=== PATIENT | male | born 1965 | race Caucasian/White ===

== ENCOUNTER 2024-12-19 11:14 | Inpatient (IN) | payer OTHER, SELFPAY ==
[2024-12-18 22:03] VITALS: BP 149/94
[2024-12-18 23:11] VITALS: BP 144/81
[2024-12-18 23:48] LABS: Hematocrit 36.1 % (39.0-52.0); Hemoglobin 11.9 g/dL (13.0-18.0); Mean Corpuscular Hgb 26.8 pg (27.0-31.0); Mean Corpuscular Volume 81.3 fL (80.0-94.0); Mean Platelet Volume 12.2 fL (7.4-10.4); Platelet Count 116 10^3/uL (130-400); Red Blood Cell Count 4.44 10^6/uL (4.70-6.10); Red Cell Dist. Width 14.8 % (11.5-14.5)
[2024-12-18 23:54] LABS: ALT (SGPT) 39 U/L (0-50); AST (SGOT) 33 U/L (17-59); Albumin 4.2 g/dl (3.5-5.0); Alkaline Phosphatase 119 U/L (38-126); Blood Urea Nitrogen 9 mg/dl (9-20); Calcium 8.7 mg/dl (8.4-10.2); Carbon Dioxide 27 mmol/L (22-30); Chloride 102 mmol/L (98-107); Glucose 144 mg/dl (70-99); Potassium 3.5 mmol/L (3.5-5.1); Sodium 136 mmol/L (135-145); Total Bilirubin 0.6 mg/dl (0.2-1.3); Total Protein 6.8 g/dl (6.3-8.2); eGFR > 60.00
[2024-12-19] VITALS (7 sets, daily range): BP systolic 137–153; BP diastolic 83–90
[2024-12-19 00:08] LABS: % Basophils 0.3 % (0-2); % Eosinophils 0.9 % (0-6); % Immature Granulocytes 0.4 % (0-0.5); % Monocytes 8.2 % (1.7-9.3); % Neutrophils 16.2 % (42.2-75.2); Absolute Basophils 0.2 10^3/uL (0-0.2); Absolute Eosinophils 0.6 10^3/uL (0-0.7); Absolute Immature Granulocytes 0.3 10^3/uL (0-0.05); Absolute Lymphocytes 47.4 10^3/uL (1.2-3.4); Absolute Monocytes 5.2 10^3/uL (0.1-0.6); Absolute Neutrophils 10.4 10^3/uL (1.4-6.5); Nucleated Red Blood Cells % 0 % (-)
[2024-12-19 00:57] LABS: Lactic Acid 0.8 mmol/L (0.7-2.0)
[2024-12-19] MEDS: TORADOL 15 MG IV ×4 (01:26→20:29)
[2024-12-19 01:34] LABS: Urine Albumin 3+ (Neg - Trace); Urine Bilirubin Negative (Negative); Urine Character Clear (Clear); Urine Color Yellow; Urine Glucose Negative (Negative); Urine Ketone Negative (Negative); Urine Leukocyte Negative (Negative); Urine Nitrite Negative (Negative); Urine Occult Blood 2+ (Negative); Urine Urobilinogen Negative (Neg - 1+); Urine pH 6.5 (5.0-9.0)
[2024-12-19 01:52] LABS: COVID-19 Antigen Negative (Negative)
--- NOTE | 2024-12-19 01:57 | ED.GENMED ---
History of Present Illness
General
Chief Complaint: Fever
Source: patient and spouse
Exam Limitations: none
Time Seen by Provider: 12/18/24 23:16
Nursing documentation reviewed up to this point in time: agreed with
History of Present Illness
History of Present Illness:
59-year-old male past medical history of CLL not currently receiving any treatment presenting to the emergency department today with concerns of vague diffuse symptoms body aches fevers chills some upper respiratory symptoms cough. Worsening cough
and fever as well as shortness of breath over the past 24 hours. Denies any specific chest pain no nausea vomiting.
Review of Systems
Review of Systems
Allergies reviewed?: Yes
All Other Systems: ROS reviewed and negative except as documented in HPI and ROS
Phy Exam
Physical Exam
Physical Exam:
GENERAL: Alert , in no apparent distress
EYE: pupils equal and reactive
NECK: Supple, no significant adenopathy.
ENT: o/p clr, mmm.
CARDIAC: Regular rate and rhythm .
LUNGS: Diffuse rhonchi mainly to the lower lobes,
ABDOMEN: Soft, without focal tenderness, no r/g, no cvat
NEUROLOGICAL: Alert and oriented, no focal neuro deficits
SKIN: Warm and dry, skin intact.
MUSCULOSKELETAL: No edema, well perfused.
PSYCH: Normal and appropriate interaction.
Course
Orders/Labs/Results
Orders:
Orders
12/18/24 23:31
IV Insert/Care/Rem.- Treatment PRN
Pulse Ox/cont/shift [RESP] Urgent
Quantity: 1
Special Instructions: CONTINUOUS
12/18/24 23:34
Complete Blood Count/With Diff Urgent
Comprehensive Metabolic Panel Urgent
12/19/24 00:18
Chest [CR Chest - 2 Views ] Urgent
Comment:
Reason For Exam: cough adventitious lung sounds diffuse
12/19/24 00:20
Ketorolac [Toradol] 15 mg IV NOW STA
12/19/24 00:28
Lactic Acid Urgent
Blood Culture Q30M
ADA Source: Blood/Venous
Specimen Description:
12/19/24 00:30
Blood Culture Q30M
ADA Source: Blood/Venous
Specimen Description:
12/19/24 01:12
COVID-19 Antigen Urgent
Source: Nasal Swab
Urinalysis Urgent
Date Specimen was Collected: 12/19/24
Time Specimen was Collected: 01:08
Urine Microscopic Urgent
Date Specimen was Collected: 12/19/24
Time Specimen was Collected: 01:08
Influenza A+B Rapid Molecular Urgent
ADA Source: Nasal Swab
Specimen Description:
Urine Culture Urgent
ADA Source: Urine
Specimen Description:
Obtained by: [facility]
Date Specimen was Collected: 12/19/24
Time Specimen was Collected: 01:08
12/19/24 01:49
Azithromycin 500 mg/250 ml [Zithromax Infusion] 500 mg in 250 ml IV NOW
CefTRIAXone [Rocephin] 2,000 mg IV NOW STA
Abnormal Lab Results
12/18/24 12/19/24
23:34 01:12
WBC 64.0 H* 10^3/uL
(4.8-10.8)
RBC 4.44 L 10^6/uL
(4.70-6.10)
Hgb 11.9 L g/dL
(13.0-18.0)
Hct 36.1 L %
(39.0-52.0)
MCH 26.8 L pg
(27.0-31.0)
RDW 14.8 H %
(11.5-14.5)
Plt Count 116 L 10^3/uL
(130-400)
MPV 12.2 H fL
(7.4-10.4)
Abs Immat Gran (auto) 0.3 H 10^3/uL
(0-0.05)
Absolute Neuts (auto) 10.4 H 10^3/uL
(1.4-6.5)
Absolute Lymphs (auto) 47.4 H 10^3/uL
(1.2-3.4)
Absolute Monos (auto) 5.2 H 10^3/uL
(0.1-0.6)
Neutrophils % 16.2 L %
(42.2-75.2)
Lymphocytes % 74.0 H %
(20.5-51.1)
Glucose 144 H mg/dl
(70-99)
Urine Occult Blood 2+ A
(Negative)
Urine Albumin 3+ A
(Neg - Trace)
12/18/24 23:34
12/18/24 23:34
Vital Signs
Initial and Last Documented VS:
Initial Vital Signs
Temp Pulse Resp BP Pulse Ox
99.9 F 110 16 149/94 95
12/18/24 22:03 12/18/24 22:03 12/18/24 22:03 12/18/24 22:03 12/18/24 22:03
Last Documented Vital Signs
Temp Pulse Resp BP Pulse Ox
99.9 F 110 16 144/81 92
12/18/24 22:03 12/18/24 22:03 12/18/24 22:03 12/18/24 23:11 12/18/24 23:45
MDM/Problems Addressed
MDM/Problems Addressed:
59-year-old male presenting to the emergency department today with concerns of fever respiratory symptoms worsening over the past day present to some degree over the past 4 days. On arrival tachycardic low-grade temperature did take Tylenol prior
to arrival. White blood cell count of 64,000. Does typically have a white count in the 60,000 due to CLL. Otherwise labs unremarkable. Chest x-ray no pneumonia but lung examination with concerning tissue sounds. Considering this plan to treat
with IV antibiotics and admitted for further monitoring. Culture sent as well.
*Critical Care Note
Total Time (30-74mins, 75-104mins- exclusive of procedures): Not Applicable
ED Attending Note
-
Portions of this chart may have been created with voice recognition software.� Occasional wrong word or��sound alike� substitutions may have occurred due to the inherent limitations of voice recognition software.
Discharge Plan
Departure
Patient Disposition: Admit
Date of Disposition: 12/19/24
Time of Disposition: 01:59
Admit to: Telemetry
Admit to doctor: rishabh
Presentation/result/management discussed w/ accepting MD/DO: Hospitalist
Patient with high blood pressure during this ER visit?: No
Condition: Good
Covid-19: Not Applicable
Discharge Problem:
Fever, Pneumonia
Referrals:
NONE,* [Family Provider] -
Interventions
Interventions:
*Risk Screen - Suicide Last Done: 12/18/24 22:03
*General Assessment Last Done: 12/18/24 22:03
*Neglect/Abuse Screening Last Done: 12/18/24 22:03
*ED- Fall Risk Assessment Last Done: 12/18/24 23:12
*ED COVID-19 Vaccine History Last Done: 12/18/24 23:12
Discharge Date and Time
Print Language: ITALIAN
[2024-12-19 01:58] LABS: Urine Amorphous Seen; Urine Squamous Cell >30 /LPF (Few); Urine White Cell 0-2 /HPF (0-5)
[2024-12-19 01:59] LABS: Urine Bacteria Few (Negative)
--- NOTE | 2024-12-19 02:14 | HPS.HSE ---
Family Physician
-
Family Physician: * NONE
Chief Complaint
-
Fever
History of Present Illness
This is a 59-year-old with past medical history of RENETTA and CLL not currently on any treatment who presents to the emergency department with intermittent fevers for the last 4 days.
Patient reports onset of sinus congestion, headache and fevers on Sunday. He reported that the fevers were intermittent. He denies any night sweats. He started having postnasal drip about 2 days ago. He also started having sore throat and cough
that is mostly nonproductive but occasionally productive of white phlegm yellow phlegm and some tinges of blood. He said he had some mild shortness of breath today. He has no smoking history. He denies dyspnea on exertion or exertional chest
pain. He denies pleuritic chest pain.
Patient reported that he has some sick contacts about 1 week ago with his son with upper respiratory symptoms most notable for sore throat. He was also recently gathering for the democr[employer]. He denies any recent travel. He is not currently on any
antibiotics.
Patient reported that he has known CLL with white count of around 64,000 on his most recent check.
In the emergency department he was febrile to 99.9, blood pressure was 144/81 with a pulse rate of 110. He was satting 94% on room air. CBC shows a white count of 64 with a hemoglobin of 11.9 and platelet count of 116. Electrolytes BUN and
creatinine were all in the normal range. UA was negative. COVID test was negative. Influenza test was negative. Chest x-ray shows no acute infiltrates.
Medical History
Past Medical History
Past Medical History: Reports Cancer (CLL) and Hypercholesterolemia
Past Surgical History: Reports Other (hernia repair)
Social History
Tobacco: Non-smoker
Alcohol: Occasional
Drug: None
Personal:
Living: With Family
Family History
Family History: Not pertinent
Allergies / Home Medications
Allergies reflects when Allergies were last updated in [facility].
Home Medications with original date entered in [facility]
Allergy/Medication List:
Allergies
Allergy/AdvReac Type Severity Reaction Status Date / Time
No Known Allergies Allergy Verified 12/18/24 22:08
Omeprazole 20 mg capsule, 20 mg p.o. daily
Review of Systems
-
History Source: Patient
Constitutional: Reports Fever
EENT: Reports Sore Throat, Runny Nose and Other (Headache, sinus pressure)
Respiratory: Reports Cough
Cardiac: Reports No Symptoms
Abdomen/GI: Reports No Symptoms
: Reports No Symptoms
Musculoskeletal: Reports No Symptoms
Skin: Reports No Symptoms
Neurological: Reports No Symptoms
Endocrine: Reports No Symptoms
Hematologic/Lymphatic: Reports No Symptoms
Psych: Reports No Symptoms
Physical Exam
Vital Signs
Vital Signs
Temp Pulse Resp BP Pulse Ox
99.9 F 110 16 144/81 92
12/18/24 22:03 12/18/24 22:03 12/18/24 22:03 12/18/24 23:11 12/18/24 23:45
Physical Exam
General: Well Developed, Well Nourished, No Apparent Distress and Comfortable
HEENT: NormoCephalic, Anicteric, Moist mucous membranes, Atraumatic, PERRLA and Neck Nontender; No No Ptosis, Nose Appears Normal, Ears Appear Normal, Pharyngeal Erythema or Oxygen
Respiratory: Rhonchi (Left lower lobe rhonchi)
Cardiac: S1/S2 and Regular Rhythm
GI: Soft, Non Tender, Non Distended and Normal Bowel Sounds
Rectal: Deferred by Provider
Genito-urinary: Deferred by me
Musculoskeletal: No Clubbing, No Cyanosis and No Edema
Skin: Warm
Neuro: AO x 3 and Nonfocal/grossly intact
Hematologic/Lymphatic: No Lymphadenopathy
Psych: Calm
Laboratory Results
-
12/18/24 23:34
12/18/24 23:34
Laboratory Results
Lactic Acid 0.8 mmol/L (0.7-2.0) 12/19/24 00:28
Total Bilirubin 0.6 mg/dl (0.2-1.3) 12/18/24 23:34
AST 33 U/L (17-59) 12/18/24 23:34
ALT 39 U/L (0-50) 12/18/24 23:34
Alkaline Phosphatase 119 U/L (38-126) 12/18/24 23:34
Data Reviewed
-
Diagnostic Radiology: Image Personally Visualized and interpreted
Lab Data: Labs Reviewed by me
Old Records: Reviewed
Impression/Plan
-
IMPRESSION:
59-year-old male with past medical history significant for CLL and GERD presents to the emergency department with 4 days of intermittent fevers and now intermittently productive cough. Chest x-ray shows no acute infiltrates. CBC notable for white
count of 64 (baseline 64 due to CLL). Temp of 99.9 and mild hypoxia. Auscultation of the chest reveals some rhonchi on the left lung but otherwise unremarkable. Suspect patient has URI with resultant postnasal drip and possibly acute bronchitis.
Possible early pneumonia. I suspect that may even have sinusitis as the etiology of his febrile illness with resultant secondary respiratory complication.
PLAN:
Pneumonia/acute bronchitis
- admit to med/surg
- blood cultures
- sputum cultures
- check urinary strep pneumo and legionella ag
- check procal in am, and d/c abx if neg or consider continued treatment for sinusitis
- Continue ceftriaxone/azithromycin for now
- antitussives, pain control and antipyretics
DVT PPX - lovenox sq
Code status - Full Code
[2024-12-19] MEDS: ROCEPHIN 2000 MG IV ×2 (02:27→23:24)
[2024-12-19] MEDS: ZITHROMAX INFUSION 250 IV (02:27)
[2024-12-19] MEDS: NSS 1000 IV (02:38)
[2024-12-19] MEDS: TYLENOL 650 MG PO ×4 (04:25→23:32)
--- NOTE | 2024-12-19 06:02 | PTCARENOTE ---
Pt received from ED via stretcher. Ambulated to bed independently. AAOx3, pleasant, spouse at bedside . Admission and assessment completed. Urine specimen sent as ordered, pt made aware of outstanding sputum. #20 RAC flushed and patent. Offers
no complaints at this time. Call edi w/in reach.
[2024-12-19 06:38] LABS: Hematocrit 34.8 % (39.0-52.0); Hemoglobin 11.2 g/dL (13.0-18.0); Mean Corp Hgb Conc. 32.2 g/dL (33.0-37.0); Mean Corpuscular Hgb 26.6 pg (27.0-31.0); Mean Corpuscular Volume 82.7 fL (80.0-94.0); Mean Platelet Volume 12.2 fL (7.4-10.4); Platelet Count 114 10^3/uL (130-400); Red Blood Cell Count 4.21 10^6/uL (4.70-6.10); Red Cell Dist. Width 14.9 % (11.5-14.5); White Blood Cell Count 57.4 10^3/uL (4.8-10.8)
[2024-12-19 06:48] LABS: Procalcitonin 0.44 ng/ml (0.0-0.25)
[2024-12-19 06:54] LABS: Blood Urea Nitrogen 10 mg/dl (9-20); Calcium 8.5 mg/dl (8.4-10.2); Carbon Dioxide 25 mmol/L (22-30); Chloride 106 mmol/L (98-107); Glucose 135 mg/dl (70-99); Potassium 3.7 mmol/L (3.5-5.1); Sodium 138 mmol/L (135-145); eGFR > 60.00
[2024-12-19] MEDS: FLUSH (NSS) 2 FLUSH IV ×2 (07:56→14:07)
[2024-12-19] MEDS: MUCINEX 1200 MG PO ×2 (11:47→20:29)
--- NOTE | 2024-12-19 11:53 | W.PN.UPDATE ---
Update Note
Progress Note Update
Patient seen and examined. Admitted past midnight. Nonbillable note
General: Well Developed, Well Nourished, No Apparent Distress and Comfortable
HEENT: NormoCephalic, Anicteric, Moist mucous membranes, Atraumatic
Respiratory: b/l wheezing
Cardiac: S1/S2 and Regular Rhythm
GI: Soft, Non Tender, Non Distended and Normal Bowel Sounds
Musculoskeletal: No Edema
Neuro: AO x 3 and Nonfocal/grossly intact
Hematologic/Lymphatic: No Lymphadenopathy
Psych: Calm
Shortness of breath suspect likely secondary to acute bronchitis
Immunocompromise host with CLL
Suspect viral etiology with possible superimposed bacterial infection
Continue with antibiotics
DuoNeb standing and as needed
Consider steroids if do not improve
neg legionella,strep
CXR without PNA
follow fever curve; no fever here
WBC high 2/2 CLL
History of CLL
Oncology follow-up outpatient
History of GERD
Continue home medicines
Hyperlipidemia
Continue rosuvastatin
DVT prophylaxis
Lovenox
Full code
[2024-12-19] MEDS: CRESTOR 10 MG PO (12:04)
[2024-12-19] MEDS: DUONEB 3 ML INH ×3 (12:48→18:27)
--- NOTE | 2024-12-19 13:13 | CM ---
Patient seen at bedside with and children
TT from UR patient LOC to inpatient
dx: pneumonia fever
past medical history of RENETTA and CLL not currently on any treatment
IA Completed
explained CM role
Lives with and children in a 2 story home, 4 steps to enter, flight to 2nd floor bedroom/bath
PLOF: independent
Denies DME
Denies VN/Rehab
Denies insecurities
PCP: states does not have one currently (was Dr. Perez) - information on residency clinic
PHARMACY: [facility]
PLAN: Home, no needs anticipated when stable
[2024-12-19] MEDS: NON-FORMULARY ITEM 1 UNIT INH (15:13)
[2024-12-19] MEDS: LOVENOX SC (17:10)
[2024-12-19] MEDS: LOVENOX 40 MG SC (18:04)
[2024-12-19] MEDS: ZITHROMAX 500 MG PO (21:52)
[2024-12-19] MEDS: STERILE WATER FOR INJECTION 20 ML IV (23:24)
[2024-12-20 07:00] VITALS: BP 153/91
[2024-12-20] MEDS: CRESTOR 10 MG PO (07:04)
[2024-12-20] MEDS: MUCINEX 1200 MG PO (07:04)
[2024-12-20] MEDS: NON-FORMULARY ITEM 1 UNIT INH (07:04)
[2024-12-20] MEDS: TORADOL 15 MG IV (07:10)
[2024-12-20] MEDS: DUONEB 3 ML INH (07:29)
[2024-12-20 08:52] LABS: Blood Urea Nitrogen 10 mg/dl (9-20); Calcium 8.3 mg/dl (8.4-10.2); Carbon Dioxide 27 mmol/L (22-30); Chloride 105 mmol/L (98-107); Glucose 129 mg/dl (70-99); Potassium 3.7 mmol/L (3.5-5.1); Sodium 140 mmol/L (135-145); eGFR > 60.00
[2024-12-20 09:00] LABS: Hematocrit 33.5 % (39.0-52.0); Mean Corp Hgb Conc. 32.8 g/dL (33.0-37.0); Mean Corpuscular Hgb 26.7 pg (27.0-31.0); Mean Corpuscular Volume 81.3 fL (80.0-94.0); Mean Platelet Volume 12.8 fL (7.4-10.4); Platelet Count 125 10^3/uL (130-400); Red Blood Cell Count 4.12 10^6/uL (4.70-6.10); Red Cell Dist. Width 15.2 % (11.5-14.5); White Blood Cell Count 40.8 10^3/uL (4.8-10.8)
[2024-12-20] MEDS: TYLENOL 650 MG PO (10:01)
--- NOTE | 2024-12-20 10:27 | W.PN.HOSP.TC ---
Addendum entered and electronically signed by Humble Carbone MD 12/20/24 10:42:
Time of discharge 36 minutes
Original Note:
Today's Communication/Plan
-
monitor vitals
see plan
switch to Po abx and discharge
on room air
no fever here; feeling better
Assessment / Plan
Assessment / Plan
General: Well Developed, Well Nourished, No Apparent Distress and Comfortable
HEENT: NormoCephalic, Anicteric, Moist mucous membranes, Atraumatic
Respiratory: no wheezing
Cardiac: S1/S2 and Regular Rhythm
GI: Soft, Non Tender, Non Distended and Normal Bowel Sounds
Musculoskeletal: No Edema
Neuro: AO x 3 and Nonfocal/grossly intact
Hematologic/Lymphatic: No Lymphadenopathy
Psych: Calm
Shortness of breath suspect likely secondary to acute bronchitis
Immunocompromise host with CLL
Suspect viral etiology with possible superimposed bacterial infection
Continue with antibiotics; switch to PO
DuoNeb standing and as needed; switch to albuterol prn on dc
Consider steroids if do not improve
neg legionella,strep
CXR without PNA
follow fever curve; no fever here
WBC high 2/2 CLL
feeling better today; dc on PO abx
History of CLL
Oncology follow-up outpatient
History of GERD
Continue home medicines
Hyperlipidemia
Continue rosuvastatin
DVT prophylaxis
Lovenox
Full code
Anticipated Discharge: Today
Subjective/Interval History
-
Date of Service: December 20, 2024
denies sob
Objective Data
-
Labs:
Laboratory Results
12/20/24
06:46
WBC 40.8 H*
Hgb 11.0 L
Hct 33.5 L
Plt Count 125 L
Sodium 140
Potassium 3.7
Chloride 105
Carbon Dioxide 27
BUN 10
Creatinine 0.9
Glucose 129 H
Calcium 8.3 L
Vital Signs:
Vital Signs
Temp Pulse Resp BP Pulse Ox
97.8 F 68 15 153/91 94
12/20/24 07:00 12/20/24 07:31 12/20/24 07:31 12/20/24 07:00 12/20/24 07:31
I&O
12/19/24 12/20/24 12/21/24
06:59 06:59 06:59
Intake Total 240 / 240
Balance 240 / 240
[2024-12-20 10:40] LABS: % Basophils 0.2 % (0-2); % Eosinophils 1.7 % (0-6); % Immature Granulocytes 0.2 % (0-0.5); % Lymphocytes 79.3 % (20.5-51.1); % Monocytes 6.6 % (1.7-9.3); Absolute Basophils 0.1 10^3/uL (0-0.2); Absolute Eosinophils 0.7 10^3/uL (0-0.7); Absolute Immature Granulocytes 0.1 10^3/uL (0-0.05); Absolute Lymphocytes 32.4 10^3/uL (1.2-3.4); Absolute Monocytes 2.7 10^3/uL (0.1-0.6); Absolute Neutrophils 4.8 10^3/uL (1.4-6.5); Nucleated Red Blood Cells % 0 % (-)
--- NOTE | 2024-12-20 10:42 | W.DCSUMMARY ---
Discharge Summary
Discharge Data
Date of Admission: 12/19/24
Date of Discharge: 12/20/24
-
Pending Results: No
Hospital Course
59-year-old male with past medical history of CLL, GERD came to the hospital with shortness of breath which was likely thought was suspected secondary to acute bronchitis. It did appear that patient likely could have a superimposed bacterial
infection and was started on antibiotics. Patient over time continue to improve and antibiotics was switched to oral upon discharge. Since patient symptoms were improving, he was then discharged home with instructions to follow-up with all his
physicians outpatient.
Discharge Plan
-
Patient Disposition: Home (Routine Discharge)
Discharge Diagnosis/Procedures: Shortness of breath suspect secondary to acute bronchitis
Possible sinusitis
History of CLL
Diet: As tolerated
Activity: As tolerated
Driving Restrictions: As prior to admission
Bathing Restrictions: None
Blood Work: CBC next week with primary care provider
Referrals:
NONE,* [Family Provider] - in less than 1 week
Prescriptions:
New
guaifenesin 600 mg Tablet Extended Release 12hr
1,200 mg PO Q12 Qty: 28 0RF
acetaminophen 325 mg Tablet
650 mg PO Q4HPRN PRN (Reason: if temp > 101 F) Qty: 0 0RF
cefdinir 300 mg capsule
300 mg PO BID Qty: 10 0RF
Probiotic 10 billion cell capsule
10,000 mmu cells PO DAILY Qty: 10 0RF
azithromycin 500 mg tablet
500 mg PO HS Qty: 5 0RF
albuterol sulfate 90 mcg/actuation HFA aerosol inhaler
2 puff inhalation Q6H PRN (Reason: shortness of breath or wheezing) Qty: 8.5 0RF
Continued
fluticasone propionate 50 mcg/actuation Larue,Suspension
2 spray INTRANASAL DAILY
rosuvastatin 10 mg Tablet
10 mg PO DAILY
Voquezna 10 mg Tablet
10 mg PO DAILY
fexofenadine 60 mg Capsule
60 mg PO 1XD
multivit with min-folic acid 0.4 mg Tablet
PO 1XD
Discharge Orders:
Discharge Patient (As Directed); Ordered 12/20/24
Ordered By: Humble Carbone
Discharge Date and Time
Discharge Date/Time: 12/20/24 11:08
Print Language: SLOVENIAN
[2024-12-20 10:50] VITALS: BP 155/85
== END 2024-12-20 11:08 | disposition home or self-care (01) | DRG 202 ==
LOC: 3 WEST ACU 11:14
PROVIDERS: Physician Assistant; ADMITTING PHYSICIAN Internal Medicine; ATTENDING PHYSICIAN Internal Medicine; EMERGENCY PHYSICIAN Student in an Organized Health Care Education/Training Program
DX: J20.9 Acute bronchitis, unspecified (principal); C91.10 Chronic lymphocytic leukemia of B-cell type not having achieved remission; E78.00 Pure hypercholesterolemia, unspecified; Z11.52 Encounter for screening for COVID-19; R09.02 Hypoxemia; Z79.899 Other long term (current) drug therapy
CPT/HCPCS: 71046; 80048; 80053; 81003; 81015; 83605; 84145; 85025; 85027; 87040; 87086; 87449; 87502; 87811; 87899; 94640; 94760; 96365; 96375; 99285